=== PATIENT | male | born 2005 | race Two or more races ===

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

== ENCOUNTER 2024-01-10 22:23 | Emergency (ER) | payer OTHER, MEDICAID ==
[2024-01-10 22:42] VITALS: BP 138/50; O2SAT 100
--- NOTE | 2024-01-10 22:58 | ED Physician Documentation ---
History of Present Illness - Stated complaint Stated Complaint: R HAND FING LAC - Chief complaint Chief Complaint: Laceration - Additonal information Additional information: 18-year-old healthy male who is up-to-date on tetanus vaccine presents with finger laceration. He is right-handed. He was at work when an object dropped on his hand and cut his volar middle third right finger. He has full strength and sensation and movement of his right finger without pain. Symptoms are mild. He is filling out Workmen's Comp form currently. No other injuries or new concerns. No anticoagulation. No prior surgeries to finger. ROS Constitutional: no fever, no chills Eyes: no visual disturbance, no discharge Ears, Nose, Mouth, Throat: no rhinorrhea, no sore throat Cardiovascular: no chest pain, no palpitations Respiratory: no cough, no shortness of breath Gastrointestinal: no abdominal pain, no vomiting, no diarrhea Genitourinary: no dysuria, no hematuria Musculoskeletal: no back pain, no neck stiffness Skin: no rash, +wound Neurological: no focal weakness, no focal numbness PD PAST MEDICAL HISTORY - Past Medical History Past Medical History: Yes Cardiovascular: None Respiratory: Asthma Neuro: None Endocrine/Autoimmune: None GI: None : None HEENT: None Psych: Depression, Anxiety Musculoskeletal: None Derm: None - Past Surgical History Past Surgical History: No - Present Medications Home Medications: Ambulatory Orders Medication Instructions Recorded Confirmed Lurasidone HCl [Latuda] 40 mg PO DAILY 01/10/24 01/10/24 - Allergies Allergies/Adverse Reactions: Allergies Allergy/AdvReac Type Severity Reaction Status Date / Time No Known Drug Allergies Allergy Verified 01/10/24 22:40 - Social History Does the pt smoke?: No Smoking Status: Never smoker Does the pt drink ETOH?: No Does the pt have substance abuse?: No - Immunizations Immunizations are current?: Yes - POLST Patient has POLST: No PD ED PE NORMAL - Free text exam Free text exam: Const: no acute distress, non toxic appearing; calm, conversant, pleasant Eyes: PERRLA, EOMI ENT: mucous membranes moist Neck: supple, non-tender Resp: no respiratory distress Card: regular mild bradycardia in a well appearing patient Extrem: no deformities, no swelling bilateral lower extremities; right upper extremity with no tenderness to forearm, wrist, hand, snuffbox, or bones, PIP/DIPs of fingers; patient has isolated 1.5 cm linear laceration to volar middle right third phalanx. He has full strength and sensation with extension and flexion at PIP and DIP. Wound does not probe deeply. No foreign body evident. No other evidence of injury. Neuro: ANOx4, retail sales director grossly intact, grossly intact sensation and strength all extremities Skin: no rash, warm and dry Results - Vitals Vitals: Vital Signs - 24 hr 01/10/24 22:37 Temperature 36.8 C Heart Rate 58 L Respiratory 16 Rate Blood Pressure 138/50 H O2 Saturation 100 Oxygen O2 Source Room air Procedures - Laceration (location) Finger Length in cm: 1.5 Wound type: Linear Neurovascular status: Sensory intact, Motor intact, Vascular intact Tendon involvement: Tendon intact Anesthesia: Lidocaine 1% with epi (2mL used) Wound preparation: Other (wound thoroughly irrigated under running water for 10 minutes) Skin layer closure: Interrupted, Size #-0 - enter number (4), Sutures - enter # (2), Other (ethilon 4-0 sutures x2 used) Other: Patient tolerated well, No complications (Wound care and 10d suture removal discussed.), Neurovascular intact PD Medical Decision Making - ED course ED course: This patients presentation is most suggestive of simple, isolated finger injury as described, without evidence on exam of fracture, open joint, foreign body, tendon or ligament injury, infection, or other new concerns. X-ray is unlikely be beneficial in this setting. Tetanus is up-to-date in the last 10 years per patient. No other injuries evident on exam. Wound repaired as discussed. Wound care discussed. Patient understands plan. Workmen's Comp. being completed. Patient appears well, fully neurovascularly intact, stable for discharge. Sutures to be removed in roughly 10 days. Patient ambulatory and tolerating PO. Patient questions answered and plan reviewed. Strong return precautions given. Patient discharged. Departure - Departure Disposition: 01 Home, Self Care Clinical Impression: Finger laceration Condition: Good Instructions: ED Laceration All Comments: It was a pleasure taking care of you today. It is important to fully read and understand the below. Please ask us if you have any questions. Please keep your wound dry for 24 hours, then you may gently clean it with soap and water. Please have your 2 sutures removed in roughly 10 days. When the wound has healed, you can apply high grade sunscreen for 1 year to limit scarring. Please also discuss topical Vitamin E with your primary doctor to reduced scarring. If the wound opens, you have bleeding, redness, pus, worsening pain, fevers or chills, nausea, confusion, or other new concerns, please immediately return. No tests or assessments are perfect, and your condition could change person time. If your symptoms change or worsen, it is very important you immediately seek medical care. If you have any new or worsening pain, []shortness of breath, fever, vomiting, confusion, numbness, weakness, or anything else that concerns you, please immediately seek medical care. If you have been prescribed any medications: please read the drug package inserts on how to properly use the medication and any potential side effects. If you had labs (blood tests) or imaging (CT scan or x-rays) done during your visit: please follow up on the results of these with your primary care doctor, as discussed. In addition, please know the results we received today may be preliminary. Our usual practice is to follow up on tests within a few days of a patient's discharge from the Emergency Department and notify you of any changes. These may lead to changes to your treatment plan. However, the best way to obtain and interpret these test results is through your Primary Care Provider. If you need to update your contact information, please stop by the front office secretary and alert the Registration personnel before you leave the Emergency Department. Thank you for the opportunity to participate in your healthcare. We are always here and happy to see you in the future. Forms: PCP List
[2024-01-10] MEDS: LIDOCAINE 1%-EPI 1:100000 20 ML MDV SUBQ STA (23:09)
== END 2024-01-10 23:49 | disposition home or self-care (01) ==
LOC: ED 22:23
DX: S61.212A Laceration without foreign body of right middle finger without damage to nail, initial encounter (principal); W20.8XXA Other cause of strike by thrown, projected or falling object, initial encounter; Y93.G1 Activity, food preparation and clean up; Y92.511 Restaurant or cafe as the place of occurrence of the external cause; Y99.0 Civilian activity done for income or pay
CPT/HCPCS: 1040M; 12001; 99283